=== PATIENT | male | born 1980 | race Caucasian/White ===

== ENCOUNTER 2016-10-15 06:34 | Emergency (ER) | payer SELFPAY ==
--- NOTE | 2016-10-15 07:37 | PDOC ---
Psych/Suicidal/OD HPI - General Chief Complaint: Psychiatric Complaint Stated Complaint: HEARING VOICES x1 WEEK Date Seen by Provider: 10/15/16 Time Seen by Provider: 06:55 Source: POSITIVE: Patient, Police Exam Limitations: POSITIVE: Clinical condition Nurse's Notes Reviewed & Considered: Yes - History of Present Illness Initial Comments: The patient is a 36-year-old male who is brought to the emergency department by law enforcement. Law enforcement was called because the patient has apparently been hearing voices and at times has been threatening over the past 3 or 4 days. His reports that the symptoms seem to start after he went on a fishing trip and have escalated daily. This morning he apparently grabbed the kids and started running because he stated that their lives were being threatened. Law enforcement state that he does have a history of schizophrenia and bipolar and they believe he was hospitalized at [facility] in 2010. He does not take any medication for this however. Apparently he has had increased hallucinations and has been acting erratically over the past week. On my evaluation the patient is somewhat difficult to interview. He tells me that I just don't understand that there is a world out there that I'm not seeing. He spoke about the man in the ruddy. He told the nurse that all of our lives her in danger. He admits to taking propranolol for anxiety however denies any other prescription drug use other than he states he previously smoked marijuana however denies recent use. He states that he smoked about a half pack a day up until 4 days ago. When asked why he quit he said that he "had to" he denies alcohol or illicit drug use. He does report that he has had some chest pain off and on for the past week. He denies any pain currently. His told the counselor that he complains of these pains quite frequently and that is not a new symptom. - Patient Home Medications Home Medications: Home Medications Medication Instructions Recorded Confirmed Propranolol HCl 10 mg PO BID #60 tab 02/10/16 10/15/16 - Patient Allergies Allergies/Adverse Reactions: Allergies Allergy/AdvReac Type Severity Reaction Status Date / Time Penicillins Allergy ITCHING Verified 10/15/16 06:46 Past Medical History Past Medical History Reviewed: Other (please comment) (He reports his only medical history is anxiety. Law enforcement stated that he had previously been diagnosed with schizophrenia and bipolar.) ROS - Limitations ROS Limitations: Other (please comment) (Patient is difficult to interview and does not really want to answer a lot of questions) Cardiovascular: REPORTS: Chest Pain. DENIES: Heart Palpitations, Edema Respiratory: REPORTS: Denies Resp Symptoms Neurological: DENIES: Headache, Numbness, Weakness Gastrointestinal: REPORTS: Denies GI Symptoms Psych/Suicidal/OD Exam - General Appearance General Appearance: POSITIVE: No Acute Distress, Other (Patient does not maintain a lot of eye contact and at times becomes agitated, patient refuses to allow me to examine him) - HEENT HEENT: POSITIVE: Head Inspection Nml - Neurological/Psychological Mental Status: POSITIVE: Other (Agitated at times) Sensory/Motor: POSITIVE: Other (He appears to be moving all extremities and does not have any focal neurologic deficits, he will not allow me to examine him ) Psych/Suicidal/OD Progress - Results Reviewed by me Lab Results Reviewed: Yes Lab Results:: Laboratory Results 10/15/16 10/15/16 Range/Units 07:40 08:05 WBC 8.99 (4.8-10.8) 10^3/uL RBC 5.87 (4.70-6.10) 10^6/uL Hgb 17.4 (14.0-18.0) g/dL Hct 48.8 (42.0-52.0) % MCV 83.1 (80-90) FL MCH 29.6 (27-31) PG MCHC 35.7 (33-37) g/dL RDW Std Deviation 38.4 L (39-50) fL RDW Coeff of John 12.6 (11.5-14.5) % Plt Count 308 (140-350) 10*3/uL MPV 9.5 (7.4-12.2) FL Immature Gran % (Auto) 0.2 (0-5) % Neut % (Auto) 67.6 (50-80) % Lymph % (Auto) 22.6 (10-50) % [place] % (Auto) 6.6 (5-15) % Eos % (Auto) 2.0 (0-8) % Baso % (Auto) 1.0 (0-1) % Immature Gran # (Auto) 0.02 10*3/UL Neut # (Auto) 6.08 10*3/UL Lymph # (Auto) 2.03 10*3/uL [place] # (Auto) 0.59 (0.3-0.8) 10*3/UL Eos # (Auto) 0.18 10*3/UL Baso # (Auto) 0.09 10*3/UL WBC Morphology Comment Normal morphology (NORM) Plt Morphology Comment Normal morphology (NORM) RBC Morph Comment Normal morphology (NORM) D-Dimer 0.23 (0.00-0.59) mg/L Sodium 139 (135-145) meq/L Potassium 4.0 (3.8-5.2) meq/L Chloride 101 (98-112) meq/L Carbon Dioxide 22 L (23-33) meq/L Anion Gap 16 (5-20) BUN 16 (7-22) mg/dL Creatinine 1.0 (0.70-1.50) mg/dL Estimated GFR > 60 (>60 ml/min/1.73m(2)) BUN/Creatinine Ratio 16.00 (6-20) Glucose 190 H (78-110) mg/dL Calculated Osmolality 293.0 H (267-292) mOsm/kg Calcium 10.0 (8.7-10.7) mg/dL Magnesium 2.0 (1.6-2.4) mg/dL Total Bilirubin 1.2 (0.3-1.2) mg/dL AST 34 (21-57) IU/L ALT 70 (21-72) IU/L Alkaline Phosphatase 70 (38-126) IU/L Troponin I < 0.012 (< 0.040) ng/mL Total Protein 8.3 H (6.1-8.0) g/dL Albumin 4.9 H (3.5-4.8) g/dL Globulin 3.4 (2.50-4.10) g/dL Albumin/Globulin Ratio 1.40 (1.3-2.0) mg/g Ur Collection Type Clean catch urine Urine Color Yellow Urine Clarity Clear (CLEAR) Urine pH 5.5 (5.0-8.5) Ur Specific [place] 1.010 (1.005-1.030) U Specif Grav (Refrac) 1.010 Urine Protein Negative (NEG) mg/dl Urine Glucose (UA) Negative (NEG) mg/dL Urine Ketones 40 (NEG) Urine Occult Blood Negative (NEG) Urine Nitrate Negative (NEG) Urine Bilirubin Negative (NEG) Urine Urobilinogen 0.2 (0.2) EU/dL Ur Leukocyte Esterase Negative (NEG) Ur Culture Indicated? Culture not set Salicylates < 1.0 (0-20) mg/dl Urine Opiates Screen Negative (NEG) Ur Buprenorphine Negative (NEG) Ur Oxycodone Screen Negative (NEG) Urine Methadone Screen Negative (NEG) Ur Propoxyphene Screen Negative (NEG) Acetaminophen < 10.0 (0-30) ug/mL Barbiturate Screen Negative (NEG) U Tricyclic Antidepress Negative (NEG) Phencyclidine Screen Negative (NEG) Amphetamines Screen Negative (NEG) U Methamphetamines Scrn Negative (NEG) Benzodiazepines Screen Negative (NEG) Cocaine Screen Negative (NEG) U Marijuana (THC) Screen Positive H (NEG) Serum Alcohol < 10 (0-10) mg/dL EKG Interpretation:: POSITIVE: Other (Patient refused) - Patient's Progress MDM / ED Course: The patient did allow us to take his vital signs on arrival which were all unremarkable. He refused to allow me to examine him and refused to allow us to do an EKG or blood work. Mental health consultation was obtained. He did allow us to collect a urine sample which was unremarkable except for he did test positive for marijuana. After mental health evaluated the patient he did allow us to draw his blood which was sent to the lab for analysis. He refused to allow us to do an EKG stating that the machine was trying to kill him. He is extremely paranoid about any type of machinery or electrical cords. The mental health counselor was concerned that he potentially could be dangerous to others especially his family members and even possibly himself in his current state. She is in the process of looking for placement for him and she is placing him on an involuntary hold. His blood work is all essentially unremarkable except for mildly elevated blood glucose at 190. Hemoglobin A1c was sent. His family reports that he has been told he has borderline diabetic in the past. His d-dimer and troponin are normal. Even though the patient would not allow us to do an EKG I do not think his complaints of intermittent chest pains are cardiac related. His reports that he has this complaint quite frequently. Patient care will be transferred to Dr. Shea at 0900 while we are awaiting placement. Patient Care Time - Estimated PCT Patient Care Time (In Minutes): 30 Vital Signs - Recent Vital Signs Vital Signs: Vital Signs (Last 8 hours) Temp Pulse Resp BP Pulse Ox 10/15/16 06:34 96.7 F L 61 15 148/89 96 - VS Reviewed Vital Signs Reviewed: Yes Discharge Clinical Impression: Psychotic disorder Discharge Disposition: Other (Patient care transferred to Dr. Shea at 9:00 AM) Condition: Serious Follow Up With: NONE,NONE [Primary Care Provider] -
[2016-10-15 07:54] LABS: BILIRUBIN,URINE NEGATIVE (NEG); COLOR,URINE YELLOW; GLUCOSE, URINE (UA) NEGATIVE (NEG); NITRATE,URINE NEGATIVE (NEG); OCCULT BLOOD,URINE NEGATIVE (NEG); PH,URINE 5.5 (5.0-8.5); PROTEIN,URINE NEGATIVE (NEG); UROBILINOGEN,URINE 0.2 EU/dL (0.2)
[2016-10-15 07:59] LABS: CLARITY,URINE CLEAR (CLEAR)
[2016-10-15 08:08] LABS: AMPHETAMINE SCREEN NEGATIVE (NEG); CANNABINOID SCREEN,URINE POSITIVE (NEG); COCAINE SCREEN NEGATIVE (NEG); METHADONE URINE SCREEN NEGATIVE (NEG); METHAMPHETAMINES SCREEN,URINE NEGATIVE (NEG); OPIATE SCREEN,URINE NEGATIVE (NEG); URINE SAMPLE TYPE CLEAN CATCH URINE
[2016-10-15 08:08] LABS: BASOPHILS # (AUTO) 0.09 10*3/UL; EOSINOPHILS # (AUTO) 0.18 10*3/UL; HEMATOCRIT 48.8 % (42.0-52.0); HEMOGLOBIN 17.4 g/dL (14.0-18.0); LYMPHOCYTES # (AUTO) 2.03 10*3/uL; MEAN CORPUSCULAR HEMOGLOBIN 29.6 PG (27-31); MEAN CORPUSCULAR HGB CONC 35.7 g/dL (33-37); MEAN CORPUSCULAR VOLUME 83.1 FL (80-90); MEAN PLATELET VOLUME 9.5 FL (7.4-12.2); MONOCYTES # (AUTO) 0.59 10*3/UL (0.3-0.8); MONOCYTES % (AUTO) 6.6 % (5-15); NEUTROPHILS # (AUTO) 6.08 10*3/UL; NEUTROPHILS % (AUTO) 67.6 % (50-80); RED BLOOD COUNT 5.87 10^6/uL (4.70-6.10)
[2016-10-15 08:12] LABS: PLATELET MORPHOLOGY COMMENT NORMAL MORPHOLOGY (NORM); RBC MORPHOLOGY COMMENT NORMAL MORPHOLOGY (NORM); WBC MORPHOLOGY COMMENT NORMAL MORPHOLOGY (NORM)
[2016-10-15 08:24] LABS: BLOOD UREA NITROGEN 16 mg/dL (7-22); EST GLOMERULAR FILTRATION > 60 (>60 ml/min/1.73m(2)); SERUM ALBUMIN 4.9 g/dL (3.5-4.8)
[2016-10-15 08:29] LABS: SALICYLATE < 1.0 mg/dl (0-20)
[2016-10-15 08:47] VITALS: RESP 15; TEMP 96.7
--- NOTE | 2016-10-15 10:43 | PDOC ---
Transfer of Care - Care Accepted Time Care Transferred: 09:00 Report from Transferring Physician Received: Yes MDM / ED Course: Patient is a 36-year-old male who was signed out to me how this morning. In brief he is suffering a psychotic episode. He has been medically cleared by Dr. Gonzales. He is currently undergoing evaluation for transfer for psychiatric care. After he is accepted to accepting facility likely be transferred stable condition. Patient was evaluated by [facility]. Was amenable for transfer to [facility]. Patient transferred to [facility] in stable condition. Home Medications: Home Medications Propranolol HCl 10 mg PO BID #60 tab 02/10/16 Allergies/Adverse Reactions: Allergies Penicillins Allergy (Verified 10/15/16 06:46) ITCHING Vital Signs Reviewed: Yes - Expected Patient Outcome Expected Disposition: POSITIVE: Transfer - Re-Evaluation of Patient Disposition of Patient: POSITIVE: Transferred - Results Reviewed Lab Results Reviewed by Me: Yes Lab Results: Laboratory Results 10/15/16 10/15/16 10/15/16 Range/Units 07:40 08:05 08:15 WBC 8.99 (4.8-10.8) 10^3/uL RBC 5.87 (4.70-6.10) 10^6/uL Hgb 17.4 (14.0-18.0) g/dL Hct 48.8 (42.0-52.0) % MCV 83.1 (80-90) FL MCH 29.6 (27-31) PG MCHC 35.7 (33-37) g/dL RDW Std Deviation 38.4 L (39-50) fL RDW Coeff of John 12.6 (11.5-14.5) % Plt Count 308 (140-350) 10*3/uL MPV 9.5 (7.4-12.2) FL Immature Gran % (Auto) 0.2 (0-5) % Neut % (Auto) 67.6 (50-80) % Lymph % (Auto) 22.6 (10-50) % [place] % (Auto) 6.6 (5-15) % Eos % (Auto) 2.0 (0-8) % Baso % (Auto) 1.0 (0-1) % Immature Gran # (Auto) 0.02 10*3/UL Neut # (Auto) 6.08 10*3/UL Lymph # (Auto) 2.03 10*3/uL [place] # (Auto) 0.59 (0.3-0.8) 10*3/UL Eos # (Auto) 0.18 10*3/UL Baso # (Auto) 0.09 10*3/UL WBC Morphology Comment Normal morphology (NORM) Plt Morphology Comment Normal morphology (NORM) RBC Morph Comment Normal morphology (NORM) D-Dimer 0.23 (0.00-0.59) mg/L Sodium 139 (135-145) meq/L Potassium 4.0 (3.8-5.2) meq/L Chloride 101 (98-112) meq/L Carbon Dioxide 22 L (23-33) meq/L Anion Gap 16 (5-20) BUN 16 (7-22) mg/dL Creatinine 1.0 (0.70-1.50) mg/dL Estimated GFR > 60 (>60 ml/min/1.73m(2)) BUN/Creatinine Ratio 16.00 (6-20) Glucose 190 H (78-110) mg/dL Mean Blood Glucose 140.440 mg/dL Hemoglobin A1c 6.80 H (4.2-6.0) % Calculated Osmolality 293.0 H (267-292) mOsm/kg Calcium 10.0 (8.7-10.7) mg/dL Magnesium 2.0 (1.6-2.4) mg/dL Total Bilirubin 1.2 (0.3-1.2) mg/dL AST 34 (21-57) IU/L ALT 70 (21-72) IU/L Alkaline Phosphatase 70 (38-126) IU/L Troponin I < 0.012 (< 0.040) ng/mL Total Protein 8.3 H (6.1-8.0) g/dL Albumin 4.9 H (3.5-4.8) g/dL Globulin 3.4 (2.50-4.10) g/dL Albumin/Globulin Ratio 1.40 (1.3-2.0) mg/g TSH 3.64 (0.2700-4.2000) uIU/mL Ur Collection Type Clean catch urine Urine Color Yellow Urine Clarity Clear (CLEAR) Urine pH 5.5 (5.0-8.5) Ur Specific [place] 1.010 (1.005-1.030) U Specif Grav (Refrac) 1.010 Urine Protein Negative (NEG) mg/dl Urine Glucose (UA) Negative (NEG) mg/dL Urine Ketones 40 (NEG) Urine Occult Blood Negative (NEG) Urine Nitrate Negative (NEG) Urine Bilirubin Negative (NEG) Urine Urobilinogen 0.2 (0.2) EU/dL Ur Leukocyte Esterase Negative (NEG) Ur Culture Indicated? Culture not set Salicylates < 1.0 (0-20) mg/dl Urine Opiates Screen Negative (NEG) Ur Buprenorphine Negative (NEG) Ur Oxycodone Screen Negative (NEG) Urine Methadone Screen Negative (NEG) Ur Propoxyphene Screen Negative (NEG) Acetaminophen < 10.0 (0-30) ug/mL Barbiturate Screen Negative (NEG) U Tricyclic Antidepress Negative (NEG) Phencyclidine Screen Negative (NEG) Amphetamines Screen Negative (NEG) U Methamphetamines Scrn Negative (NEG) Benzodiazepines Screen Negative (NEG) Cocaine Screen Negative (NEG) U Marijuana (THC) Screen Positive H (NEG) Serum Alcohol < 10 (0-10) mg/dL Patient Care Time - Estimated PCT Patient Care Time (In Minutes): 5 Vital Signs - Recent Vital Signs Vital Signs: Vital Signs (Last 8 hours) Temp Pulse Resp BP Pulse Ox 10/15/16 06:34 96.7 F L 61 15 148/89 96 Discharge Clinical Impression: Psychotic disorder Condition: Serious Follow Up With: NONE,NONE [Primary Care Provider] -
== END 2016-10-15 11:45 ==
LOC: ER 06:34
DX: F23 Brief psychotic disorder (principal); F20.0 Paranoid schizophrenia; F31.9 Bipolar disorder, unspecified; R07.9 Chest pain, unspecified
CPT/HCPCS: 80053; 80305; 80320; 80329; 81003; 83036; 83735; 84443; 84484; 85025; 85379; 90791; 99283; 99284